=== PATIENT | female | born 1960 | race American Indian/Alaskan Native ===

== ENCOUNTER 2017-07-19 10:23 | Day surgery (SDC) | payer OTHER ==
[~2017-07-19 10:23] MED LIST: NACL 0.9% 1000 ML 1,000 ML IV SCH
[2017-07-19] MEDS ORDERED: DIPRIVAN 10 MG/ML IV ONE ×2 (11:12→11:13)
--- NOTE | 2017-07-19 11:16 | Anesthesia Day of Surgery ---
Anesthesia Day of Surgery - Day of Surgery Patient Examined: Yes Patient H&P Reviewed: Yes Patient is NPO: Yes Beta Blockers: No
--- NOTE | 2017-07-19 11:17 | Anesthesia Consultation ---
Anesthesia Consult and Med Hx - Airway Anesthetic Teeth Evaluation: Good ROM Head & Neck: Adequate Mental/Hyoid Distance: Adequate Mallampati Class: Class II Intubation Access Assessment: Probably Good - Pulmonary Exam CTA: Yes - Cardiac Exam Cardiac Exam: No Murmur - Pre-Operative Health Status ASA Pre-Surgery Classification: ASA3 Proposed Anesthetic Plan: MAC - Pulmonary Hx Smoking: No Hx Asthma: No Hx Respiratory Symptoms: No SOB: No COPD: No Home Oxygen Therapy: No Hx Pneumonia: No Hx Sleep Apnea: No - Cardiovascular System Hx Hypertension: Yes Hx Coronary Artery Disease: No Hx Heart Attack/AMI: No Hx Angina: No Hx Percutaneous Transluminal Coronary Angioplasty (PTCA): No Hx Cardia Arrhythmia: No Hx Pacemaker: No Hx Internal Defibrillator: No Hx Valvular Heart Disease: No Hx Heart Murmur: No Hx Peripheral Vascular Disease: No - Central Nervous System Hx Neuromuscular Disorder: No Hx Seizures: No CVA: No Hx Back Pain: No Hx Psychiatric Problems: No - Gastrointestinal Hx Ulcer: No Hx Gastroesophageal Reflux Disease: No - Endocrine Hx Renal Disease: No Hx End Stage Renal Disease: No Hx Cirrhosis: No Hx Liver Disease: No Hx Insulin Dependent Diabetes: No Hx Non-Insulin Dependent Diabetes: No Hx Thyroid Disease: No Hx Hypothyroidism: No Hx Hyperthyroidism: No - Hematic Hx Anemia: No Hx Sickle Cell Disease: No - Other Systems Hx Alcohol Use: No Hx Substance Use: No Hx Cancer: No Hx Obesity: No
[2017-07-19] MEDS ORDERED: WATER FOR IRRIG STERILE IR ONE (11:20)
[2017-07-19] MEDS ORDERED: WATER FOR IRRIG STERILE ONE (11:21)
[2017-07-19] MEDS ORDERED: XYLOCAINE MPF 2% ONE (11:30)
[2017-07-19 12:09] VITALS: BP 144/79
--- NOTE | 2017-07-19 12:11 | Operative Report ---
Operative Report Operative Report: Date of procedure: 07/19/2017 Procedure: Colonoscopy with submucosal injection, cold snare polypectomy, Hot Biopsy Polypectomy. Attending physician: Hardeep Davalos MD Cooling Pan Tender: Hardeep Davalos MD Indication: Patient is a 56-year-old female who presents for screening colonoscopy. This colonoscopy serves to evaluate patient so that treatment may be directed based on the findings. Consent: Informed consent was obtained after advising the patient and family regarding nature of this procedure, its indications, potential benefits as well as possible complications including but not limited to bleeding perforation and adverse reaction to medication, infection as well as other cardiopulmonary complications. An informed written and verbal consent was then obtained after due opportunity was provided for questions and answers. Monitoring: Patient was monitored continuously with pulse oximetry and electrocardiographic recordings as well as blood pressure recordings. Vital signs remained stable throughout this procedure with no untoward events. Preoperative assessment: Patient was assessed immediately prior to this procedure for capacity to tolerate monitored anesthesia care and moderate sedation as well as general anesthesia. Patient's ASA classification is 2, Mallampati class is 2, Hyomental distance is 3. Instrument: [employer] video colonoscope Medications: Propofol given intravenously in divided doses. For details please refer to anesthesia records. Description of procedure: Patient was placed in the left lateral decubitus position after achieving sedation, a digital rectal examination was performed following which the colonoscope was introduced into the anal verge and advanced to the cecum which was identified by the cecal valve, the appendiceal orifice, as well as by the cecal strap and direct transillumination. The colonoscope was subsequently withdrawn with careful inspection of all mucosal surfaces. Patient tolerated this procedure well and was subsequently taken to the recovery room. The following findings were noted. Findings: Patient had broad-based flat polyp in the cecum which was elevated with submucosal injection of saline and removed with a cold snare. A Hemoclip was applied over the polypectomy site. In the sigmoid colon, patient had another sessile 6-8 large polyp which was again elevated with submucosal injection and removed mucosal snare. The remainder of the polyp was hot biopsy polypectomy. In the rectum, patient had a diminutive 4 mm polyp was hot biopsy polypectomy. The rest of the colon was normal. On the retroflex view at the anal verge, patient had internal hemorrhoids. The preparation was fair. Impression: Cecal polyp status post submucosal injection and cold snare polypectomy. Sigmoid colon polyp status post submucosal injection, cold snare polypectomy, hot biopsy polypectomy. Rectal polyp status post hot biopsy polypectomy. Internal hemorrhoids. Plan: Follow pathology report. High-fiber diet. Repeat colonoscopy in 5 years if polyps are adenomatous.
--- NOTE | 2017-07-19 12:12 | Discharge Summary ---
Short Stay Discharge Plan Activity: advance as tolerated Weight Bearing Status: Weight Bear as Tolerated Diet: regular Additional Instructions: Post Sedation D/C Instructions When you return home you may resume your regular diet unless otherwise directed. -Go directly home from the hospital and rest quietly. You may resume normal activities tomorrow. -Do NOT drive, return to work, operate any machinery or make any important personal or business decisions today. -Do NOT drink any alcohol or take nerve or sleeping drugs. They add to the effects of the medicine still present in your body. Follow up with: ANNABELLA LINARES MD [Primary Care Provider] - 7 Days
== END 2017-07-19 10:24 | disposition home or self-care (01) ==
LOC: GIO 10:23
PROVIDERS: ATTEND Internal Medicine Gastroenterology
DX: Z12.11 Encounter for screening for malignant neoplasm of colon (principal); D12.0 Benign neoplasm of cecum; K63.5 Polyp of colon; K62.1 Rectal polyp; E11.9 Type 2 diabetes mellitus without complications; I10 Essential (primary) hypertension
CPT/HCPCS: 45381; 45384; 45385; 88305; J2704; J7030